=== PATIENT | male | born 1960 | race Two or more races ===

== ENCOUNTER 2018-02-28 09:09 | Emergency (ER) | payer MEDICAID ==
[~2018-02-28] VITALS: Ht 172.7 cm; Wt 75.0 kg
[2018-02-28 09:11] VITALS: BP 120/66
== END 2018-02-28 10:42 | disposition left against medical advice (07) ==
LOC: ER 09:41
DX: M54.2 Cervicalgia (principal); M25.512 Pain in left shoulder; Z53.21 Procedure and treatment not carried out due to patient leaving prior to being seen by health care provider